=== PATIENT | female | born 1980 | race Caucasian/White ===

== ENCOUNTER 2016-12-17 07:55 | Inpatient (IN) | payer OTHER ==
[~2016-12-17] VITALS: Ht 160 cm; Wt 71.7 kg
[~2016-12-17 07:55] MED LIST: IBUPROFEN800 MG PO; PRENATAL VITAMI1 TA2 PO
[2016-12-17 09:28] LABS: ABSOLUTE BASOPHIL COUNT 0 /CUMM (0.0-0.2); ABSOLUTE EOSINOPHIL COUNT 0.1 /CUMM (0.0-0.7); ABSOLUTE GRANULOCYTE CT 7.9 /CUMM (1.4-6.5); ABSOLUTE LYMPH COUNT 1.3 /CUMM (1.2-3.4); ABSOLUTE MONOCYTE COUNT 0.8 /CUMM (0.10-0.60); BASOPHIL % 0.3 % (0.0-2.0); EOSINOPHIL % 0.7 % (0-5); GRANULOCYTE % 78.2 % (42.2-75.2); HEMATOCRIT 39.2 % (37-47); MEAN CORPUSCULAR HGB 30.1 PG (27.0-31.0); MEAN CORPUSCULAR VOLUME 85.9 FL (81.0-99.0); MEAN PLATELET VOLUME 9.8 FL (7.4-10.4); PLATELET COUNT 138 /CUMM (130-400); RBC DISTRIBUTION WIDTH 13.3 % (11.5-14.5); RED BLOOD CELL CT 4.56 /CUMM (4.20-5.40)
[2016-12-17] MEDS ORDERED: LABETALOL HCL100 M1 (10:12)
--- NOTE | 2016-12-17 10:13 | History & Physical ---
General Information and HPI MD Statement: I have seen and personally examined SHIMA GREENBERG and documented this H&P. The patient is a 36 year old female at [37] weeks and [2] days gestation who presented with a chief complaint of [IOL]. Source of Information: patient Exam Limitations: no limitations History of Present Illness: 36YO,, here for IOL due to GHTN, preeclampsia. pt has no complaints today, denies headache, blur vision, or epigastric pain. care started at 9wks, complicated by HTN at 24 wks, she takes labetalol BID, BP WNL. 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 elbow Past Family/Social History Psychosocial History Where do you live? Home Primary Language: Bahamian Smoking Status: Former Smoker (quit 10 years) ETOH Use: denies use Illicit Drug Use: denies illicit drug use Review of Systems Review of Systems Constitutional: Reports: no symptoms. EENTM: Reports: no symptoms. Cardiovascular: Reports: see HPI. Respiratory: Reports: no symptoms. GI: Reports: no symptoms. Genitourinary: Reports: see HPI. Musculoskeletal: Reports: no symptoms. Skin: Reports: no symptoms. Neurological/Psychological: Reports: no symptoms. Hematologic/Endocrine: Reports: no symptoms. Immunologic/Allergic: Reports: no symptoms. All Other Systems: Reviewed and Negative Date of LMP: 03/31/16 Post Menopausal: No Exam & Diagnostic Data Obstetric Exam Wgt Gained During : 30lbs Pelvimetry: adequate for 7'11" Dilation (cm): 2 Effacement (%): 50 Station: -2 Membranes: intact Fluid: unknown Fundal Height (cm): 37 Multiple Gestation? No Contractions: no Infant #1 - FHR Baseline: 130 Category: 1 Estimated Weight: 3200g Presentation: vertex Patient for Induction? Yes Gottlieb Score Gottlieb Score Response Value Cervix Position: posterior 0 Cervix Consistency: medium 1 Cervix Effacement: 30-50% 1 Cervix Dilation: 1-2 cm 1 Cervix Station: -2 1 Total 4 Physical Exam: VSS General: NAD Abdomen: gravid, soft, nontender. Ext: DCT (-) Labs Blood Type & Rh: O positive Antibody Screen: negative Hct/Hgb & Platelets #1: 14.5/43.1%,[id number] Hct/Hgb & Platelets #2: 13.5/42.8%,[id number] Rubella: immune VDRL #1: negative VDRL #2: negative HbsAg: negative HIV #1: negative HIV #2 negative 1 Hr P Group B Strep: negative Initial Ultrasound: IUP at 9 wks Anatomy Ultrasound: normal Genetic Testing: declined Last 24 Hrs of Labs/Papito: Laboratory Tests 12/17/16 0852: CBC w Diff NO MAN DIFF REQ, RBC 4.56, MCV 85.9, MCH 30.1, RDW 13.3, MPV 9.8, Gran % 78.2 H, Lymphocytes % 12.8 L, Monocytes % 8.0, Eosinophils % 0.7, Basophils % 0.3, Absolute Granulocytes 7.9 H, Absolute Lymphocytes 1.3, Absolute Monocytes 0.8 H, Absolute Eosinophils 0.1, Absolute Basophils 0, PUBS MCHC 35.0 12/17/16 0742: Urine Color STRAW, Urine Clarity CLEAR, Urine pH 6.5, Ur Specific Worton <= 1.005, Urine Protein 30 H, Urine Ketones NEG, Urine Nitrite NEG, Urine Bilirubin NEG, Urine Urobilinogen 0.2, Ur Leukocyte Esterase NEG, Ur Microscopic SEDIMENT EXAMINED, Urine RBC RARE, Urine Hemoglobin NEG, Urine Glucose NEG Assessment/Plan Assessment/Plan: 36yo, 37 2/7wks, GHTN, preeclampsia, IOL 1. admit pt, admission labs 2. R/B/A of IOL d/w pt, she undertsand and agreed. will start pitocin for IOL 3. will monitor closely As Ranked By This Provider Problem List: 1. 2. induced hypertension, antepartum Core Measures/Miscellaneous Venous Thromboembolism VTE Risk Factors: / VTE Contraindications: No Contraindications VTE Diagnosis: No Beta Betty Is Beta Betty a Home Med? Yes If Yes, Was This Ordered Today? Yes Antibiotics Is Patient on Antibiotics? No Attending MD Review Statement Attending Statement Attending MD Statement: examined this patient, discussed with family, discussed w/nursing
[2016-12-17] MEDS ORDERED: ASPIRIN EC81 M1 (10:14)
--- NOTE | 2016-12-17 13:24 | PN- OBGYN ---
Surgical Brief Attending Note Brief Attending Note: pt is resting in bed, no complaints, c/o feels mild ctx on TOCO: ctxs 2-3 in 10 min, FHR baseline 130, moderate variability, + acels, no decels. cervix 2cm/50%/-2, AROM , clear fluids will continue pitocin for IOL, monitor closely
--- NOTE | 2016-12-17 21:40 | Labor & Delivery Summary ---
Delivery Summary Vaginal Delivery: Vaginal: vertex Episiotomy/Lacerations: Episiotomy/Lacerations: 2ND DEGREE Type: SMALL 2ND DEGREE Repair: 3-0 VICRYL Anesthesia: LOCAL Placenta: Placenta: spontanteous, normal, 3 vessel Anesthesia: LOCAL Baby's Weight: 3120G Apgars - 1 Min: 9 Apgars - 5 Min: 9 Additional Comments: Patient fully dilated, pushed well, spontaneous delivered a male in cephalic presentation, JUANITA position, head delivered atraumatically, followed by shoulder and rest of the body without difficulty, mouth and nose suctioned with suction bulb, baby vigorous and cried, place on mother's chest, cord clamped and cut. Placenta delivered spontaneously, intact, three-vessel cord. After delivery of the placenta, heavy vaginal bleeding encountered, uterus massaged to firm, Pitocin IV and 1 dose of Hemabate given. Uterus well contracted. Small second-degree laceration repair with 3-0 Vicryl. Total EBL 500 mL. Sponge, instruments and needle counts were correct. Patient tolerated the procedure well. She is seeing recovery room in stable condition.
[2016-12-18 09:18] LABS: ABSOLUTE BASOPHIL COUNT 0 /CUMM (0.0-0.2); ABSOLUTE EOSINOPHIL COUNT 0 /CUMM (0.0-0.7); ABSOLUTE GRANULOCYTE CT 12.3 /CUMM (1.4-6.5); ABSOLUTE LYMPH COUNT 1.3 /CUMM (1.2-3.4); ABSOLUTE MONOCYTE COUNT 1.4 /CUMM (0.10-0.60); BASOPHIL % 0.2 % (0.0-2.0); EOSINOPHIL % 0.3 % (0-5); GRANULOCYTE % 81.6 % (42.2-75.2); MEAN CORPUSCULAR HGB 29.8 PG (27.0-31.0); MEAN CORPUSCULAR HGB CONC 33.7 G/DL (33.0-37.0); MEAN CORPUSCULAR VOLUME 88.4 FL (81.0-99.0); MEAN PLATELET VOLUME 10.2 FL (7.4-10.4); PLATELET COUNT 132 /CUMM (130-400); RBC DISTRIBUTION WIDTH 13.4 % (11.5-14.5); RED BLOOD CELL CT 3.86 /CUMM (4.20-5.40)
[2016-12-18 09:33] LABS: HEMATOCRIT 34.1 % (37-47); WHITE BLOOD CELL COUNT 15.1 /CUMM (4.8-10.8)
--- NOTE | 2016-12-18 12:01 | PN- Post Delivery/GYN ---
Subjective Subjective: feeling well Review of Systems Constitutional: Reports: no symptoms. Denies: chills, fever. EENTM: Denies: blurred vision, double vision, visual changes. Cardiovascular: Denies: chest pain. Respiratory: Denies: cough, short of breath. Gastrointestinal: Denies: diarrhea, nausea, vomiting. Neurological/Psychological: Denies: anxiety, depressed. Objective Last 24 Hrs of Vital Signs/I&O vss Vital Signs Date Time Temp Pulse Resp B/P B/P Pulse O2 O2 Flow FiO2 Mean Ox Delivery Rate 12/18 1007 98.2 76 18 112/60 12/17 2221 98.9 86 18 140/98 12/17 2118 155/80 Physical Exam General Appearance Alert, Oriented X3, Cooperative, No Acute Distress Cardiovascular Regular Rate Lungs Clear to Auscultation Abdomen Soft, fundus firm Pelvic (FEMALE) lochia serosanganous Current Medications: Current Medications Sig/Mark Anthony Start time Last Medication Dose Route Stop Time Status Admin Acetaminophen 650 MG Q4P PRN 12/17 2144 AC PO Bupivacaine HCl 10 ML ONCE ONE 12/17 2144 DC 12/17 SC 12/17 2145 2100 Butorphanol Tartrate 2 MG .STK-MED ONE 12/17 2004 DC IM 12/17 2005 Carboprost 250 MCG STAT STA 12/17 2132 DC 12/17 Tromethamine IM 12/17 2133 2100 Docusate Sodium 100 MG BID PRN 12/17 2144 AC PO Ibuprofen 800 MG .STK-MED ONE 12/18 0124 DC PO 12/18 0125 Ibuprofen 800 MG Q6P PRN 12/17 2144 AC 12/18 PO 0814 Labetalol HCl 100 MG BID 12/17 2230 AC 12/18 PO 1007 Lactated Ringer's 1,000 ML Q8H 12/17 0830 DC 12/17 IV 1953 Ondansetron HCl 4 MG ONCE ONE 12/18 1999 DC 12/17 IV 12/17 2000 195 Oxycodone/ 1 TAB Q3P PRN 12/17 2144 AC Acetaminophen PO Oxytocin 20 UNITS Q5H 12/17 214 DC 12/17 Lactated Ringer's 1,000 ML IV 12/18 0744 2100 Oxytocin 30 UNITS PER PROTOCL 12/17 0945 DC 12/17 Lactated Ringer's 500 ML IV 1000 Last 24 Hrs of Labs/Papito: vss Laboratory Tests 12/18/16 0805: CBC w Diff NO MAN DIFF REQ, RBC 3.86 L, MCV 88.4, MCH 29.8, RDW 13.4, MPV 10.2, Gran % 81.6 H, Lymphocytes % 8.9 L, Monocytes % 9.0, Eosinophils % 0.3, Basophils % 0.2, Absolute Granulocytes 12.3 H, Absolute Lymphocytes 1.3, Absolute Monocytes 1.4 H, Absolute Eosinophils 0, Absolute Basophils 0, PUBS MCHC 33.7 Assessment/Plan Assessment/Plan ppd #1 vss afebrile Problem List: 1. Attending MD Review Statement Attending Statement Attending MD Statement: examined this patient, discussed with family, discussed with nursing
[2016-12-19 09:57] VITALS: BP 122/62
--- NOTE | 2016-12-19 10:53 | PN- Post Delivery/GYN ---
Subjective Subjective: doing well READY FRO DISCHARGE HOME Review of Systems: Negative for cardiac pulmonary GI complaints Objective Last 24 Hrs of Vital Signs/I&O Afebrile normal vital signs blood pressure range has been typically in the 120s over 60-70. She had 1 blood pressure this point at 132/92 on the labetalol 100 twice a day Vital Signs Date Time Temp Pulse Resp B/P B/P Pulse O2 O2 Flow FiO2 Mean Ox Delivery Rate 12/19 0957 97.6 72 18 122/62 12/18 2212 97.9 75 20 138/86 Physical Exam General Appearance Alert, Oriented X3, Cooperative, No Acute Distress Skin No Significant Lesion Cardiovascular Regular Rate Lungs Normal Air Movement Abdomen Normal Bowel Sounds, Soft, No Tenderness, No Hepatospenomegaly, UTERUS IS FIRM MIDLINE 2 FINGERBREADTHS BELOW THE UMBILICUS NONTENDER Neurological Normal Gait, Normal Speech Extremities No Tenderness/Swelling Reproductive (FEMALE) Normal female genitalia, AVERAGE LOCHIA Current Medications: Current Medications Sig/Mark Anthony Start time Last Medication Dose Route Stop Time Status Admin Acetaminophen 650 MG Q4P PRN 12/17 2145 DCD PO Docusate Sodium 100 MG BID PRN 12/17 214 DCD PO Ibuprofen 800 MG .STK-MED ONE 12/18 2028 DC PO 12/18 2029 Ibuprofen 800 MG .STK-MED ONE 12/18 1448 DC PO 12/18 1449 Ibuprofen 800 MG Q6P PRN 12/17 2145 DCD 12/18 PO 2034 Labetalol HCl 100 MG BID 12/17 2230 DCD 12/19 PO 0957 Oxycodone/ 1 TAB Q3P PRN 12/17 2145 DCD Acetaminophen PO Assessment/Plan Assessment/Plan normal 2 day evaluation. Blood pressure well controlled on labetalol 100 twice a day. Patient postop day 1 mL was without significant anemia. Patient is ready for discharge home Plan is to discharge to home prescriptions given for vitamins, Motrin 800 3 times a day when necessary, labetalol 100 twice a day. Patient has also significant hemorrhoids so we will prescribe topical hydrocortisone and lidocaine cream for her Problem List: 1. Active labor at term 2. 3. induced hypertension, antepartum Attending MD Review Statement Attending Statement Attending MD Statement: examined this patient, discussed with family, discussed with nursing Attending Assessment/Plan: HIEN VILLARREAL m.d.
== END 2016-12-19 12:07 | DRG 775 ==
LOC: GNO 07:55
PROVIDERS: ADMIT Obstetrics & Gynecology
PROC: 0KQM0ZZ Repair Perineum Muscle, Open Approach (ICD-10-PCS; principal; 2016-12-17)
PROC: 10E0XZZ Delivery of Products of Conception, External Approach (ICD-10-PCS; principal; 2016-12-17)
PROC: 3E033VJ Introduction of Other Hormone into Peripheral Vein, Percutaneous Approach (ICD-10-PCS; principal; 2016-12-17)
DX: O70.1 Second degree perineal laceration during delivery (principal); Z37.0 Single live birth; Z87.891 Personal history of nicotine dependence; Z3A.37 37 weeks gestation of pregnancy; O13.4 Gestational [pregnancy-induced] hypertension without significant proteinuria, complicating childbirth; O14.94 Unspecified pre-eclampsia, complicating childbirth
CPT/HCPCS: GNOP; GNOS; 36415; 81001; 88307; J2405; J7120